=== PATIENT | male | born 1995 | race African-American/Black ===

== ENCOUNTER 2017-01-20 21:52 | Emergency (ER) | payer OTHER ==
[~2017-01-20] VITALS: Ht 185.4 cm; Wt 86.5 kg
[~2017-01-20 21:52] MED LIST: BACTRIM,SEPT1 TABLET PO; HYDROCODON-ACE1 EAC7 PO; INDOCIN25 MG PO; NAPROXEN500 MG PO; NOHOMEMEDS; NORCO 5/3251 TABLET PO; VALIUM5 MG PO
[2017-01-20] MEDS ORDERED: NAPROSYN500 MG PO (22:48)
[2017-01-20] MEDS ORDERED: FLEXERIL5 MG PO (22:48)
[2017-01-20 23:11] LABS: ADD MIUA? YES; BILIRUBIN NEGATIVE; BLOOD NEGATIVE; COLOR DK YELLOW ((YELLOW)); GLUCOSE (STRIP) NEGATIVE; KETONES NEGATIVE; LEUKOCYTES SMALL; NITRITE NEGATIVE; PH, URINE 6.5 (5-8); PROTEIN (STRIP) NEGATIVE
[2017-01-20 23:15] VITALS: BP 118/72
[2017-01-20 23:30] LABS: BACTERIA RARE /HPF; EPITHELIAL CELLS NONE SEEN /HPF; MUCUS TRACE /LPF; RED BLOOD CELLS 0-5 /HPF (0-5); UCUL ADDED? NO; WHITE BLOOD CELLS 0-5 /HPF (0-5)
[2017-01-21 13:16] LABS: CHLAMYDIA TRACHOMATIS NEGATIVE; NEISSERIA GONORRHOEAE POSITIVE
== END 2017-01-20 23:17 | disposition home or self-care (01) ==
LOC: EME 21:52
PROVIDERS: Physician Assistant
DX: S39.012A Strain of muscle, fascia and tendon of lower back, initial encounter (principal); Z20.2 Contact with and (suspected) exposure to infections with a predominantly sexual mode of transmission; W18.30XA Fall on same level, unspecified, initial encounter
CPT/HCPCS: 81003; 87491; 87591; 99281; 99284; J0696